=== PATIENT | male | born 1935 | race Caucasian/White ===

== ENCOUNTER 2016-11-26 05:10 | Day surgery (SDC) | payer MEDICARE, OTHER ==
[~2016-11-26] VITALS: Ht 182.9 cm; Wt 100.0 kg
--- NOTE | ~2016-11-26 | HP ---
PATIENT'S NAME: SULEMA BAER [facility] AGE: 81 Y [address] ROOM: [place] [address] LOCATION: [facility] ADMIT DATE: 11/26/2016 History & Physical DISCHARGE DATE: FAMILY PHYSICIAN: Chacho Abrams MD ATTENDING PHYSICIAN: Dino Herrera DATE OF SERVICE: 11/26/2016 HISTORY: An 81-year-old male, who has had a progressive onset of inflammation of the prepuce which has resulted in phimosis. It has progressively gotten worse and now he is to the point where he cannot retract the prepuce over the glans and the opening is becoming very stenotic. Therefore, he is seen for a circumcision. 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 He had a Stephanie of 9, pT2c. He was given the option for followup radiation or hormonal treatment, he declined the radiation therapy and was started on Lupron. He has done very nicely on that. His PSAs have all remained undetectable. PAST MEDICAL HISTORY: Illnesses: 1. Hypertension. 2. Arteriosclerotic heart disease. 3. Cardiac arrhythmia. OPERATIONS: 1. Ureteroscopy with stone removal. 2. Cystoscopy, stent and ESWL. 3. Total hip. 4. As above. ALLERGIES: NONE KNOWN. REVIEW OF SYSTEMS: He has been in good health. He does have cardiac issues and has been followed by Dr. Eduardo Duffy. He was recently cleared for circumcision. His anticoagulant was discontinued. He was bridged with Lovenox and will restart the Pradaxa after the surgery. PHYSICAL EXAMINATION: GENERAL: Well-developed, well-nourished male. CHEST: Clear. PATIENT'S NAME: SULEMA BAER [facility] AGE: 81 Y [address] ROOM: [place] [address] LOCATION: [facility] ADMIT DATE: 11/26/2016 History & Physical DISCHARGE DATE: FAMILY PHYSICIAN: Chacho Abrams MD ATTENDING PHYSICIAN: Dino Herrera HEART: Irregular rate. ABDOMEN: Soft and obese. No palpable masses. : Marked phimosis of the prepuce with chronic inflammation. Testicles are normal. Prostatic fossa is empty. RECTAL: Negative. IMPRESSION: Phimosis, severe. PLAN: Circumcision. DINO K MD BRIONNA HERRERA/[place] /[id number] D: [id number] T: [id number] HISTORY & PHYSICAL
--- NOTE | ~2016-11-26 | OR ---
PATIENT'S NAME: SULEMA BAER [facility] AGE: 81 Y [address] ROOM: [place] [address] LOCATION: [facility] ADMIT DATE: 11/26/2016 OR/Procedure Report DISCHARGE DATE: 11/26/2016 FAMILY PHYSICIAN: Chacho Abrams MD ATTENDING PHYSICIAN: Dino Herrera SURGEON: Dino Herrera MD [employer] TRAINER: DATE OF PROCEDURE: 11/26/2016 PREOPERATIVE DIAGNOSIS: Phimosis with chronic balanoposthitis. POSTOPERATIVE DIAGNOSIS: Phimosis with chronic balanoposthitis. OPERATION PERFORMED: Circumcision. DESCRIPTION OF PROCEDURE: After adequate anesthesia, he was prepped and draped. He had severe phimosis and the foreskin could not be retracted over the glans. Therefore a dorsal slit was done and then it was re-prepped with surgical soap. A circumcision was then done using the parallel lines technique. The inflamed, chronically infected prepuce was removed. Anastomosis was done using interrupted 4-0 chromic sutures. Dressing was applied. He was accompanied to recovery area. DINO HERRERA MD EKL/modl /[id number] d: 11/26/16 0945 t: 11/27/16 0452, OPERATIVE SUMMARY
[~2016-11-26 05:10] MED LIST: ASPIRIN EC325 MG PO; BICALUTAMIDE50 MG PO; CALCIUM 600 +1 EAC7 PO; DIGOXIN125 MCG PO; K-TAB ER20 MEQ PO; LASIX40 MG PO; LOPRESSOR50 M1 PO; PRADAXA75 MG PO; ZESTRIL2.5 MG PO
[2016-11-26] MEDS ORDERED: LOVENOX 8080 MG/0.8 SUB-Q/IV (06:06)
== END 2016-11-26 08:45 | disposition disaster alternative care site (69) ==
LOC: GSDC 05:10 → GPOC 05:15 → GSDC 08:45 → GPOC 16:00
PROC: 0VTTXZZ Resection of Prepuce, External Approach (ICD-10-PCS; principal; 2016-11-26)
DX: N48.0 Leukoplakia of penis (principal); N47.1 Phimosis; E78.00 Pure hypercholesterolemia, unspecified; I10 Essential (primary) hypertension; C61 Malignant neoplasm of prostate; I48.91 Unspecified atrial fibrillation; I25.10 Atherosclerotic heart disease of native coronary artery without angina pectoris; Z87.442 Personal history of urinary calculi; Z98.890 Other specified postprocedural states; Z79.82 Long term (current) use of aspirin; Z79.899 Other long term (current) drug therapy
CPT/HCPCS: J2001; J7120